=== PATIENT | female | born 1945 | race Caucasian/White ===

== ENCOUNTER → 2016-07-17 | Outpatient (CLI) | payer MEDICARE, OTHER ==
[~2016-07-17] MED LIST: CATHETER FLUSH 10 ML SYR IV PRN; IOHEXOL 350 MG/ML 100 ML (OMNIPAQUE 350) VIAL IV ONE; NS 100 ML (IVPB) BAG IV ONE
--- OUTSIDE RECORDS SUMMARY | 2016-07-17 09:44 | XMS REPORT ---
Author Author PEDRO CARCAMO [facility], [place] eClinicalWorks Address Unknown Phone Unavailable Care Team Providers Care Representative Phlebotomy Services Name Role Phone PEDRO CARCAMO Unavailable Allergies No Known Allergies Problems Problem Type Condition Code Onset Dates Condition Status Problem Breast cancer C50.919 Active Problem IBS (irritable bowel syndrome) K58.9 Active Problem Neuropathy G62.9 Active Problem Hiatal hernia K44.9 Active Problem Vitamin D deficiency E55.9 Active Medications No Known Medications Results No Known Results Summary Purpose eClinicalWorks Submission
--- NOTE | 2016-07-17 14:13 | Diagnostic Imaging Report ---
PROCEDURE: CT head with and without contrast. TECHNIQUE: Multiple contiguous axial images were obtained through the brain before and after the administration of intravenous contrast. INDICATION: Dysphagia. Dizziness. History of breast cancer. 80 mL of Omnipaque 350 is administered intravenously. FINDINGS: The unenhanced phase demonstrates no intracranial hemorrhage, edema or mass effect. There is no hydrocephalus. No extra-axial fluid collection. After contrast administration, no enhancing nodule or mass is identified in the brain or extra-axial space. The paranasal sinuses and the mastoid air cells appear clear. The frontal sinuses are hypoplastic. The calvarium and orbits appear grossly unremarkable. IMPRESSION: Unremarkable exam. Dictated by: Dictated on workstation # [id number]
--- NOTE | 2016-07-17 19:06 | Diagnostic Imaging Report ---
PROCEDURE: US Carotid Duplex Bilateral. TECHNIQUE: Multiple real-time grayscale images were obtained over the carotid arteries in various projections bilaterally. Additional duplex Doppler and color Doppler images were also obtained. INDICATION: Abnormal carotid artery Doppler with bilateral atherosclerotic plaque. FINDINGS: There is partially calcified plaque seen along the proximal internal carotid artery on both sides. The vertebral artery is associated with antegrade flow seen on both sides. Doppler demonstrates patency of the common, internal and external carotid arteries bilaterally. The peak systolic velocities in the right ICA are 63, 103 and 104 cm/sec from proximal to distal and on the left 65, 62 and 75 cm/sec. ICA versus CCA ratios are up to 1.4 on the right and up to 1 on the left. IMPRESSION: Bilateral partially calcified atherosclerotic plaque in the proximal internal carotid artery, with estimated underlying stenosis in the range of 25-50% bilaterally. Dictated by: Dictated on workstation # [id number]
== END ==
LOC: RAD 09:37
PROVIDERS: ATTEND Nurse Practitioner Adult Health
DX: R13.19 Other dysphagia (principal); R42 Dizziness and giddiness; R93.8 Abnormal findings on diagnostic imaging of other specified body structures; I65.23 Occlusion and stenosis of bilateral carotid arteries
CPT/HCPCS: 70470; 93880

== ENCOUNTER → 2016-07-21 | Outpatient (CLI) | payer MEDICARE, OTHER ==
[~2016-07-21] MED LIST changes: +BARIUM SUSPENSION 105% (LIQUID POLIBAR PLUS) 240 ML/DOSE PO ONE; +BARIUM SUSPENSION 60% (LIQUID EZ PAQUE) 240 ML DOSE PO ONE; -CATHETER FLUSH 10 ML SYR IV PRN; -IOHEXOL 350 MG/ML 100 ML (OMNIPAQUE 350) VIAL IV ONE; -NS 100 ML (IVPB) BAG IV ONE
--- NOTE | 2016-07-21 10:56 | Diagnostic Imaging Report ---
EXAMINATION: Barium swallow double-contrast. INDICATION: Dysphagia Fluoroscopy time: One minute and 58 seconds TECHNIQUE: [employer] Captain image of the chest was performed. Subsequently, the patient was given gas forming granules for oral ingestion followed by thick and thin barium to drink. Swallowing through the esophagus was observed with fluoroscopy and overhead images, as well as multiple spot images in the upright and prone positions, were taken. FINDINGS: [employer] Captain image of the chest demonstrate surgical clips the projecting over the axillary tail of the breasts bilaterally is seen. No acute process. No significant reflux is seen during the study. Normal motility seen. The esophagus is normal in caliber and contour. There is no mucosal abnormality, diverticulum or filling defect to suggest a mass. There is a small sliding hernia hiatal hernia demonstrated. IMPRESSION: Small sliding hiatal hernia. Dictated by: Dictated on workstation # [id number]
== END ==
LOC: RAD 08:51
PROVIDERS: ATTEND Nurse Practitioner Adult Health
DX: R13.19 Other dysphagia (principal)
CPT/HCPCS: 74220

== ENCOUNTER → 2017-06-30 | Outpatient (CLI) | payer MEDICARE, OTHER ==
[~2017-06-30] MED LIST changes: -BARIUM SUSPENSION 105% (LIQUID POLIBAR PLUS) 240 ML/DOSE PO ONE; -BARIUM SUSPENSION 60% (LIQUID EZ PAQUE) 240 ML DOSE PO ONE; +IOHEXOL 350 MG/ML 100 ML (OMNIPAQUE 350) VIAL IV ONE; +NS 100 ML (IVPB) BAG IV ONE
[2017-06-30 08:30] LABS: BLOOD UREA NITROGEN 9 MG/DL (7-18); BUN/CREATININE RATIO 12; CREATININE SERUM 0.74 MG/DL (0.60-1.30); GFR ESTIMATED > 60
--- NOTE | 2017-06-30 09:31 | Diagnostic Imaging Report ---
Clinical indication: Patient with left-sided throat fells like there's constantly something in there. Exam: Axial CT scan the neck soft tissue performed with 75 cc of Omnipaque 350 IV contrast. Coronal and sagittal reformatted images are created. Comparison: Barium swallow study dated 07/21/2016. Findings: It appears as though patient may have had bilateral palatine tonsillectomies. There is mild asymmetry of the right lateral oropharyngeal soft tissue/expected region of the right palatine tonsil compared to the left side. There is thickening seen along the region of the mucosa posteriorly and laterally. This is best seen on the axial sequence series 2, images 39 through 42. Otherwise, the nasopharynx, oropharynx, hypopharynx, and laryngeal soft tissue structures are unremarkable. There is no lymphadenopathy. There is no significant abnormality seen adjacent to the left neck BB marker. Visualized portion of the oral cavity, tongue, sublingual region, and submandibular regions are unremarkable. Maxillary dentures are seen. The bilateral salivary glands and thyroid gland are unremarkable. There is atherosclerotic disease of the aortic arch and proximal great vessels and bilateral carotid arteries which are patent. There is mild dependent atelectasis involving visualized portion of both upper lobes. There is cervical spine degenerative disease with vertebral body spurs and moderate loss of intervertebral disc height with endplate irregularity involving the C4-C5, C5-C6, and C6-C7 levels. There is also at least moderate right C4-C5 neural foramen narrowing, moderate to severe bilateral C5-C6, and moderate to severe right C6-C7 neural foramen narrowing. Limited visualization of intracranial structures are unremarkable. Paranasal sinuses show mild ethmoid sinus mucosal thickening. Temporal bone structures show no significant abnormality. Impression: 1: There is asymmetrically mildly prominent soft tissue in the right lateral aspect of the oral pharynx in the expected region of the palatine tonsil. Direct visualization is suggested to exclude underlying neoplasm or lesion. 2: Otherwise remainder of the neck is unremarkable for patient's age. Dictated by: Dictated on workstation # [id number]
== END ==
LOC: RAD 07:50
PROVIDERS: ATTEND Otolaryngology Otolaryngology/Facial Plastic Surgery
DX: J39.2 Other diseases of pharynx (principal); K21.9 Gastro-esophageal reflux disease without esophagitis
CPT/HCPCS: 36415; 70491; 82565; 84520

== ENCOUNTER → 2021-03-27 | Outpatient (CLI) | payer MEDICARE, OTHER ==
--- NOTE | 2021-03-27 14:55 | Diagnostic Imaging Report ---
PROCEDURE: MRI lumbar spine. TECHNIQUE: Multiplanar, multisequence MRI of the lumbar spine was performed without contrast. INDICATION: Chronic low back pain COMPARISON: None FINDINGS: The last well-formed disc space will labeled L5-S1 for the purposes of this examination. There is trace anterolisthesis at L5-S1. Vertebral body heights are preserved. There is mild T2 signal loss at multiple discs with disc height loss at L5-S1. No acute fracture is seen. There is mild bone marrow edema about the right L5-S1 facet with fluid in the facet. The conus terminates in appropriate position. Soft tissues about the lumbar spine demonstrate no acute abnormality. T12-L1: No disc bulge. No spinal canal or foraminal stenosis. L1-L2: No significant disc bulge. No spinal canal or foraminal stenosis. L2-L3: Minimal disc bulge and facet arthropathy. No spinal canal or foraminal stenosis. L3-L4: Mild disc bulge and facet arthropathy. No spinal canal stenosis. No foraminal stenosis. L4-L5: Diffuse disc bulge with facet arthropathy and ligamentous infolding. Minimal spinal canal narrowing. Mild right foraminal narrowing. No left foraminal stenosis. L5-S1: Diffuse disc bulge with facet arthropathy including fluid in the right facet. No spinal canal stenosis. Small central disc extrusion with posterior annular fissure. Mild right and moderate left foraminal stenosis. IMPRESSION: 1. Mild degenerative changes in the lumbar spine, most pronounced at L5-S1 with moderate left foraminal stenosis at that level. 2. Bone marrow edema about the right L5-S1 facet with effusion, suggestive of an active arthropathy. Dictated by: Dictated on workstation # [id number]
== END ==
LOC: RAD 14:45
PROVIDERS: ATTEND Nurse Practitioner Family
DX: M47.817 Spondylosis without myelopathy or radiculopathy, lumbosacral region (principal); M48.07 Spinal stenosis, lumbosacral region; G89.29 Other chronic pain
CPT/HCPCS: 72148

== ENCOUNTER → 2021-04-22 | Outpatient (CLI) | payer MEDICARE, OTHER ==
--- NOTE | 2021-04-22 09:11 | Diagnostic Imaging Report ---
INDICATION: 75-year-old female, postmenopausal. Screening for osteoporosis. COMPARISON: February 02, 2008. FINDINGS: AP Spine L1-L4: [BMD (g/cm2): 0.924] [T-Score: -2.3] [Z-Score: -0.7] [BMD Previous: 0.960] [BMD % Change: -3.7] LT Hip Neck: [BMD (g/cm2): 0.686] [T-Score: -2.5] [Z-Score: -0.8] LT Hip Total: [BMD (g/cm2):0.771] [T-Score:-1.9] [Z-Score: -0.3] [BMD Previous: 0.801] [BMD % Change: -3.7] RT Hip Neck: [BMD (g/cm2):0.676] [T-Score:-2.6] [Z-Score:-0.8] RT Hip Total: [BMD (g/cm2):0.768] [T-score:-1.9] [Z-Score:-0.3] [BMD Previous:0.708] [BMD % Change:-1.5] *Indicates significant change from prior examination based on 95% confidence level. World Health Organization criteria for BMD interpretation classify patients as Normal (T-score at or above -1.0), Osteopenic (T-score between -1.0 and -2.5) or Osteoporotic (T-score at or below -2.5). LIMITATIONS AND MODIFICATION: None. FRACTURE RISK (FRAX SCORE): The ten year probability of (%): Major Osteoporotic Fracture: [17.3] Hip Fracture: [5.5] IMPRESSION: 1. Osteopenia (Low bone mass). 2. No significant change in bone mineral density since prior examination. 3. See below National Osteoporosis Foundation guidelines on when to potentially initiate pharmacologic therapy. Based on the National Osteoporosis Foundation Guidelines, pharmacologic treatment should be initiated in any of the following, unless clinical conditions suggest otherwise: * Any patient with prior fragility fracture of the hip or vertebrae. A spine fracture indicates 5X risk for subsequent spine fracture and 2X risk for subsequent hip fracture. * Osteoporosis (T-score <-2.5). * Postmenopausal women and men age 50 and older with low bone mass/osteopenia (T-score between -1.0 and -2.5) by DXA and 10-year major osteoporotic fracture greater than 20% or a 10-year probability of hip fracture greater than 3%. These fracture risks are supplied above in the FRAX score, if applicable. * Clinician judgement and/or patient preferences may indicate treatment for people with 10-year fracture probabilities above or below these levels. Dictated by: Dictated on workstation # [id number]
== END ==
LOC: RAD 08:30
PROVIDERS: ATTEND Nurse Practitioner Family
DX: Z13.820 Encounter for screening for osteoporosis (principal); M85.80 Other specified disorders of bone density and structure, unspecified site; Z78.0 Asymptomatic menopausal state
CPT/HCPCS: 77080

== ENCOUNTER 2022-09-08 11:06 | Emergency (ER) | payer MEDICARE, OTHER ==
[~2022-09-08] VITALS: Ht 162.6 cm; Wt 72.6 kg
--- NOTE | 2022-09-08 11:24 | ED Chest Pain ---
General Stated Complaint: CHEST PAIN History of Present Illness Date Seen by Provider: Sep 08, 2022 Time Seen by Provider: 11:14 Initial Comments 77-year-old female with PMH of HLD/arthritis/skin cancer removal from her back recently/breast cancer and bilateral mastectomy in 1988/COVID in May 2022, is here with complaints of ongoing chest pain since she had COVID. Patient states that the chest pain is mainly central in location however all her ribs feel tender and even touching her chest wall is extremely painful. Patient also has associated shortness of breath which worsens when she walks around a lot. Denies recent URI, cough, fever and chills, abdominal pain, nausea and vomiting, diarrhea, palpitations. Patient also complains of left calf pain which has been going on for some time as well. Patient is extremely anxious. Allergies and Home Medications Allergies Coded Allergies: Sulfa (Sulfonamide Antibiotics) (Verified Allergy, Unknown, 09/08/22) amoxicillin (Verified Allergy, Unknown, 09/08/22) clavulanic acid (Verified Allergy, Unknown, 09/08/22) Patient Home Medication List Home Medication List Reviewed: Yes Review of Systems Review of Systems Constitutional: no symptoms reported EENTM: No Symptoms Reported Respiratory: Shortness of Air Cardiovascular: Chest Pain Gastrointestinal: No Symptoms Reported Genitourinary: No Symptoms Reported Musculoskeletal: no symptoms reported Skin: no symptoms reported Psychiatric/Neurological: No Symptoms Reported Endocrine: No Symptoms Reported Hematologic/Lymphatic: No Symptoms Reported Physical Exam Vital Signs Vital Signs - First Documented 09/08/22 11:08 Temp 36.6 Pulse 95 Resp 16 B/P (MAP) 154/86 (108) Pulse Ox 97 O2 Delivery Room Air Capillary Refill : Height, Weight, BMI Height: '" Weight: lbs. oz. kg; BMI Method: General Appearance: No Apparent Distress, WD/WN, Anxious HEENT: PERRL/EOMI Neck: Full Range of Motion Respiratory: Lungs Clear, Normal Breath Sounds, No Accessory Muscle Use, No Respiratory Distress, Other (Chest wall is tender to touch everywhere, with extreme reaction from patient with even light touch.) Cardiovascular: Regular Rate, Rhythm, No Edema, Other (Left lower extremity: Homans' sign positive, calf tenderness present) Gastrointestinal: Normal Bowel Sounds, Non Tender, Soft Extremity: Normal Range of Motion Neurologic/Psychiatric: Alert, Oriented x3, No Motor/Sensory Deficits Skin: Normal Color Progress/Results/Core Measures Results/Orders Lab Results Laboratory Tests Test 09/08/22 11:10 09/08/22 11:28 Range/Units White Blood Count 6.3 4.3-11.0 10^3/uL Red Blood Count 4.60 3.80-5.11 10^6/uL Hemoglobin 13.3 11.5-16.0 g/dL Hematocrit 39 35-52 % Mean Corpuscular Volume 84 80-99 fL Mean Corpuscular Hemoglobin 29 25-34 pg Mean Corpuscular Hemoglobin Concent 34 32-36 g/dL Red Cell Distribution Width 13.2 10.0-14.5 % Platelet Count 220 130-400 10^3/uL Mean Platelet Volume 9.8 9.0-12.2 fL Immature Granulocyte % (Auto) 0 % Neutrophils (%) (Auto) 69 42-75 % Lymphocytes (%) (Auto) 22 12-44 % Monocytes (%) (Auto) 8 0-12 % Eosinophils (%) (Auto) 1 0-10 % Basophils (%) (Auto) 1 0-10 % Neutrophils # (Auto) 4.3 1.8-7.8 10^3/uL Lymphocytes # (Auto) 1.4 1.0-4.0 10^3/uL Monocytes # (Auto) 0.5 0.0-1.0 10^3/uL Eosinophils # (Auto) 0.1 0.0-0.3 10^3/uL Basophils # (Auto) 0.0 0.0-0.1 10^3/uL Immature Granulocyte # (Auto) 0.0 0.0-0.1 10^3/uL Prothrombin Time 12.9 12.2-14.7 SEC INR Comment 0.9 0.8-1.4 Activated Partial Thromboplast Time 26 24-35 SEC D-Dimer 0.36 0.00-0.49 UG/ML Sodium Level 141 135-145 MMOL/L Potassium Level 3.9 3.6-5.0 MMOL/L Chloride Level 103 98-107 MMOL/L Carbon Dioxide Level 25 21-32 MMOL/L Anion Gap 13 5-14 MMOL/L Blood Urea Nitrogen 15 7-18 MG/DL Creatinine 0.81 0.60-1.30 MG/DL Estimat Glomerular Filtration Rate 76 BUN/Creatinine Ratio 19 Glucose Level 90 70-105 MG/DL Calcium Level 10.1 8.5-10.1 MG/DL Corrected Calcium 9.8 8.5-10.1 MG/DL Magnesium Level 1.9 1.6-2.4 MG/DL Total Bilirubin 0.8 0.1-1.0 MG/DL Aspartate Amino Transf (AST/SGOT) 24 5-34 U/L Alanine Aminotransferase (ALT/SGPT) 22 0-55 U/L Alkaline Phosphatase 125 40-136 U/L Troponin I < 0.30 <0.30 NG/ML Pro-B-Type Natriuretic Peptide 60.9 <450.0 PG/ML Total Protein 7.5 6.4-8.2 GM/DL Albumin 4.4 3.2-4.5 GM/DL Urine Color YELLOW Urine Clarity CLEAR Urine pH 7.0 5-9 Urine Specific [place] 1.020 1.016-1.022 Urine Protein NEGATIVE NEGATIVE Urine Glucose (UA) NEGATIVE NEGATIVE Urine Ketones NEGATIVE NEGATIVE Urine Nitrite NEGATIVE NEGATIVE Urine Bilirubin NEGATIVE NEGATIVE Urine Urobilinogen 0.2 < = 1.0 MG/DL Urine Leukocyte Esterase NEGATIVE NEGATIVE Urine RBC (Auto) NEGATIVE NEGATIVE Urine RBC RARE /HPF Urine WBC NONE /HPF Urine Squamous Epithelial Cells 5-10 /HPF Urine Crystals NONE /LPF Urine Bacteria NEGATIVE /HPF Urine Casts NONE /LPF Urine Mucus SMALL H /LPF Urine Culture Indicated NO My Orders Orders - KEN REYNA MD Continuous Ekg Monitoring (09/08/22 11:11) Ekg Tracing (09/08/22 11:11) Cbc With Automated Diff (09/08/22 11:24) Comprehensive Metabolic Panel (09/08/22 11:24) Fibrin Degradation Products (09/08/22 11:24) Magnesium (09/08/22 11:24) Protime With Inr (09/08/22 11:24) Partial Thromboplastin Time (09/08/22 11:24) Ua Culture If Indicated (09/08/22 11:24) Probnp Fs (09/08/22 11:24) Troponin I Fs (09/08/22 11:24) Us Venous Lower Ext Juancarlos (09/08/22 11:25) Chest 1 View Ap/Pa Only (09/08/22 11:26) Ketorolac Injection (Toradol Injection) (09/08/22 12:15) Lorazepam Tablet (Ativan Tablet) (09/08/22 12:02) Medications Given in ED Current Medications Medications Dose Ordered Sig/Sherine Route Start Time Stop Time Status Last Admin Dose Admin Ketorolac Tromethamine 15 mg ONCE ONCE IVP 09/08/22 12:15 09/08/22 12:16 DC 09/08/22 12:16 15 MG Vital Signs/I&O 09/08/22 11:08 Temp 36.6 Pulse 95 Resp 16 B/P (MAP) 154/86 (108) Pulse Ox 97 O2 Delivery Room Air Progress Progress Note : Progress Note 1. ACS RULE OUT: ACUTE COSTOCHONDRITIS & ANXIETY - CXR: no acute findings - Doppler u/s LOWER EXTREMITIES: no DVT - D-dimer/ CBC/ CMP/ BNP: normal labs - EKG/ Troponin: Nonischemic - Toradol 15mg iv STAT - Ativan 0.5mg STAT -Patient tolerated medications well and symptoms improved. Patient has been stressed due to her 's health and illness. Patient also states that she has been moving furniture around and lifting heavy items and doing a lot of work in the garden. Patient has acute costochondritis due to extreme tenderness upon deep palpation at the costochondral junctions. -Advised to follow-up with primary care physician in the next 3 to 7 days -Advised [id number] Lidoderm patches for chest wall pain, and ibuprofen. Advised to take ibuprofen with food. -The patient was seen in the ED, and treated appropriately to presentation at a specific point in time. Patient is informed that there is a possibility that disease and illness can evolve and change in acuity rapidly or slowly after patient is discharged from the ER. Precautionary advice given to the patient for immediate return to ER if symptoms worsen or do not resolve, and to seek emergency care sooner rather than later. Pt also advised on the importance of PCP follow up and compliance with management and follow up plan with PCP and/or specialist, as this is part of the management plan. Pt verbally expressed understanding. Diagnostic Imaging Diagonstic Imaging: Xray, Ultrasound Plain Films/CT/US/NM/MRI: chest, leg Comments [facility], [place] NAME: [facility] REC#: [id number] PT STATUS: REG ER : 1945 PHYSICIAN: KEN REYNA MD ADMIT DATE: 09/08/22/ER FS Draft Date of Exam:09/08/22 CHEST 1 VIEW AP/PA ONLY EXAMINATION: Chest 1 view HISTORY: Chest pain. COMPARISON: None available. FINDINGS: The lung volumes are normal. No focal consolidation is seen. No large pleural effusion or pneumothorax is seen. The cardiomediastinal silhouette is normal in size and contour. No acute osseous abnormality is seen. IMPRESSION: 1. No acute pleuroparenchymal process. Dictated on workstation # [id number] Dict: 09/08/22 1137 Trans: 09/08/22 1142 [facility] [id number] Interpreted by: CHONG RAMOS DO Electronically signed by: Departure Impression Primary Impression: Acute costochondritis Additional Impressions: Anxiety Ruled out for myocardial infarction Disposition: HOME, SELF-CARE Condition: Improved Departure-Patient Inst. Referrals: PEDRO CARCAMO (PCP) Primary Care Physician NO,LOCAL PHYSICIAN (Family) Primary Care Physician Patient Instructions: Chest Pain That Is Not Caused by the Heart (DC), Heart Healthy Diet, Costochondritis, Costochondritis (DC), Tips to Help You [place] in Uncertain Times, Anxiety, Adult (DC) Add. Discharge Instructions: -Advised to follow-up with primary care physician in the next 3 to 7 days -Advised [id number] Lidoderm patches for chest wall pain, and ibuprofen. Advised to take ibuprofen with food. -Return to ER if chest pain continues or intensifies KEN REYNA MD Sep 08, 2022 11:24
[2022-09-08 11:35] LABS: BILIRUBIN,URINE NEGATIVE (NEGATIVE); CLARITY,URINE CLEAR; COLOR,URINE YELLOW; GLUCOSE, URINE (UA) NEGATIVE (NEGATIVE); KETONES,URINE NEGATIVE (NEGATIVE); LEUKOCYTE ESTERASE ,URINE NEGATIVE (NEGATIVE); NITRITE,URINE NEGATIVE (NEGATIVE); PROTEIN,URINE NEGATIVE (NEGATIVE)
[2022-09-08 11:41] LABS: BASOPHILS % (AUTO) 1 % (0-10); EOSINOPHILS # (AUTO) 0.1 10^3/uL (0.0-0.3); EOSINOPHILS % (AUTO) 1 % (0-10); HEMATOCRIT 39 % (35-52); HEMOGLOBIN 13.3 g/dL (11.5-16.0); LYMPHOCYTES # (AUTO) 1.4 10^3/uL (1.0-4.0); LYMPHOCYTES % (AUTO) 22 % (12-44); MEAN CORPUSCULAR HEMOGLOBIN 29 pg (25-34); MEAN CORPUSCULAR HGB CONC 34 g/dL (32-36); MEAN CORPUSCULAR VOLUME 84 fL (80-99); MEAN PLATELET VOLUME 9.8 fL (9.0-12.2); MONOCYTES # (AUTO) 0.5 10^3/uL (0.0-1.0); MONOCYTES % (AUTO) 8 % (0-12); NEUTROPHILS # (AUTO) 4.3 10^3/uL (1.8-7.8); NEUTROPHILS % (AUTO) 69 % (42-75); PLATELET COUNT 220 10^3/uL (130-400); WHITE BLOOD COUNT 6.3 10^3/uL (4.3-11.0)
[2022-09-08 11:43] LABS: BACTERIA,URINE NEGATIVE /HPF; RBC,URINE RARE /HPF
--- NOTE | 2022-09-08 11:43 | Diagnostic Imaging Report ---
EXAMINATION: Chest 1 view HISTORY: Chest pain. COMPARISON: None available. FINDINGS: The lung volumes are normal. No focal consolidation is seen. No large pleural effusion or pneumothorax is seen. The cardiomediastinal silhouette is normal in size and contour. No acute osseous abnormality is seen. IMPRESSION: 1. No acute pleuroparenchymal process. Dictated by: Dictated on workstation # [id number]
[2022-09-08 11:55] LABS: ALKALINE PHOSPHATASE 125 U/L (40-136); BILIRUBIN,TOTAL 0.8 MG/DL (0.1-1.0); BUN/CREATININE RATIO 19; CALCIUM 10.1 MG/DL (8.5-10.1); CARBON DIOXIDE 25 MMOL/L (21-32); CHLORIDE 103 MMOL/L (98-107); CREATININE SERUM 0.81 MG/DL (0.60-1.30); GFR ESTIMATED 76; GLUCOSE 90 MG/DL (70-105); MAGNESIUM 1.9 MG/DL (1.6-2.4); POTASSIUM 3.9 MMOL/L (3.6-5.0); SODIUM 141 MMOL/L (135-145)
[2022-09-08 11:56] LABS: ALANINE AMINOTRANSFERASE 22 U/L (0-55); ALBUMIN 4.4 GM/DL (3.2-4.5); TOTAL PROTEIN 7.5 GM/DL (6.4-8.2)
[2022-09-08 11:59] LABS: FIBRIN DEGRADATION PRODUCTS 0.36 UG/ML (0.00-0.49); INR 0.9 (0.8-1.4); PROTHROMBIN TIME PATIENT 12.9 SEC (12.2-14.7)
[2022-09-08] MEDS ORDERED: LORazepam 0.5 MG (ATIVAN) TABLET PO STA (12:02)
[2022-09-08] MEDS ORDERED: KETOROLAC 15 MG/ML VIAL IVP ONE (12:15)
[2022-09-08 12:26] VITALS: BP 148/72
--- NOTE | 2022-09-08 12:30 | Diagnostic Imaging Report ---
PROCEDURE: US Venous Lower Ext Juancarlos. TECHNIQUE: Multiple real-time grayscale images were obtained over the lower extremities in various projections, bilaterally. Additional duplex Doppler and color Doppler images were also obtained. INDICATION: Calf pain COMPARISON: None available. FINDINGS: Normal flow, compression, and augmentation within the visualized deep venous structures the bilateral lower extremities. IMPRESSION: No evidence of deep venous thrombosis within the bilateral lower extremities. Dictated by: Dictated on workstation # [id number]
== END 2022-09-08 12:28 | disposition home or self-care (01) ==
LOC: EDUNIT# 11:06 → ER FS 11:07
DX: M94.0 Chondrocostal junction syndrome [Tietze] (principal); F41.9 Anxiety disorder, unspecified; Z86.16 Personal history of COVID-19
CPT/HCPCS: 36415; 71045; 80053; 81000; 83735; 83880; 84484; 85025; 85379; 85610; 85730; 93005; 93970